=== PATIENT | male | born 1985 | race Caucasian/White ===

== ENCOUNTER 2020-05-15 11:05 | Emergency (ER) | payer MEDICAID ==
[~2020-05-15] VITALS: Ht 172.7 cm; Wt 85.0 kg
[~2020-05-15 11:05] MED LIST: HYDR-4383 PO
[2020-05-15] MEDS ORDERED: acetaminophen 325mg tablet PO ONE (12:10)
[2020-05-15] MEDS ORDERED: ibuprofen tablet 400 MG TABLET PO ONE (12:10)
[2020-05-15] MEDS ORDERED: proparacaine 0.5% ophthalmic drops 15ml EACHEYE ONE (12:10)
[2020-05-15] MEDS ORDERED: ERYT1OIN6 RIGHTEYE (12:57)
[2020-05-15] MEDS ORDERED: erythromycin ophthalmic ointment 1gm tube RIGHTEYE ONE (13:00)
[2020-05-15 13:16] VITALS: BP 141/91
== END 2020-05-15 13:14 | disposition home or self-care (01) ==
LOC: ER 11:05
DX: T26.31XA Burns of other specified parts of right eye and adnexa, initial encounter (principal); H10.31 Unspecified acute conjunctivitis, right eye; Z88.8 Allergy status to other drugs, medicaments and biological substances; X08.8XXA Exposure to other specified smoke, fire and flames, initial encounter; Y93.89 Activity, other specified; Y92.89 Other specified places as the place of occurrence of the external cause; Y99.8 Other external cause status
CPT/HCPCS: 93005; 99284

== ENCOUNTER 2021-05-09 22:29 | Emergency (ER) | payer MEDICAID ==
[~2021-05-09] VITALS: Ht 172.7 cm; Wt 84.1 kg
[2021-05-09 23:07] VITALS: BP 123/77
== END 2021-05-10 09:49 | disposition left against medical advice (07) ==
LOC: ER 22:30
DX: M79.603 Pain in arm, unspecified (principal); Z53.21 Procedure and treatment not carried out due to patient leaving prior to being seen by health care provider